=== PATIENT | female | born 1940 | race African-American/Black ===

== ENCOUNTER 2022-04-21 16:15 | Inpatient (IN) | payer MEDICARE, BC ==
[~2022-04-21] VITALS: Ht 170.2 cm; Wt 62.6 kg
[2022-04-21 19:58] LABS: BASOPHILS % 0.5 % (0.0-2.0); EOSINOPHILS % 2.2 % (0.0-5.0); HEMATOCRIT. 37.2 % (36.0-48.0); HEMOGLOBIN. 12.3 g/dL (12.0-16.0); LYMPHOCYTES % 18.1 % (20.0-50.0); MEAN CORPUSCULAR HEMOGLOBIN 26.3 pg (28.0-32.0); MEAN CORPUSCULAR VOLUME 79.9 fL (81.0-99.0); MEAN PLATELET VOLUME 7.4 fl (7.4-10.4); NEUTROPHILS % 70.2 % (40.0-76.0); PLATELET 169 x1000/uL (130-400); RED BLOOD CELL COUNT 4.66 mill/uL (4.2-5.4); RED CELL DISTRIBUTION WIDTH 17.4 % (11.6-14.6)
[2022-04-21 20:11] LABS: CHLORIDE 97 mEq/L (98-107)
[2022-04-21] MEDS ORDERED: AMLO10TA80 PO (23:02)
[2022-04-21] MEDS ORDERED: SIMV10TA97 MT (23:02)
[2022-04-21] MEDS ORDERED: METO5TAB2 MT (23:02)
[2022-04-21] MEDS ORDERED: FLUO10TA3 PO (23:02)
[2022-04-21] MEDS ORDERED: CALC0.5C10 PO (23:02)
[2022-04-21] MEDS ORDERED: TOPUD MT (23:02)
[2022-04-21] MEDS ORDERED: PANT20TA17 PO (23:02)
[2022-04-21] MEDS ORDERED: LOSA25TA26 PO (23:02)
[2022-04-21] MEDS ORDERED: MIRT-89 PO (23:02)
[2022-04-21] MEDS ORDERED: DRON400T PO (23:02)
[2022-04-21] MEDS ORDERED: APIX2.5T PO (23:02)
[2022-04-21] MEDS ORDERED: EZET-55 MT (23:02)
[2022-04-21] MEDS ORDERED: TEMA30CA PO (23:02)
[2022-04-21] MEDS ORDERED: AMYL1CAP61 MT (23:02)
[2022-04-21] MEDS ORDERED: LOPE2CAP PO (23:02)
[2022-04-21] MEDS ORDERED: BUSP5TAB3 PO (23:02)
[2022-04-21] MEDS ORDERED: TIZA-191 PO (23:02)
[2022-04-22] MEDS ORDERED: MORPHINE SULFATE 4 MG/ML CPJ (NOT FOR IM USE) IV ONE (00:45)
[2022-04-22 10:30] VITALS: BP 163/69
[2022-04-22 10:45] VITALS: BP 163/69
[2022-04-22] MEDS ORDERED: ACETAMINOPHEN 325MG TABLET PO PRN ×3 (10:45→14:57)
[2022-04-22] MEDS ORDERED: ONDANSETRON HCL 4MG/2ML INJ IV PRN (10:45)
[2022-04-22 12:00] VITALS: BP 155/79
[2022-04-22] MEDS ORDERED: NALOXONE HCL 0.4MG/ML VIAL IV PRN (12:30)
[2022-04-22] MEDS: HYDROCODONE/ACETAMINOPHEN 5/325MG TABLET PO PRN ×2 (12:55→18:02)
[2022-04-22] MEDS ORDERED: TIZANIDINE HCL 2MG TABLET PO PRN (14:15)
[2022-04-22] MEDS ORDERED: LOPERAMIDE HCL 2MG CAPSULE PO PRN (14:15)
[2022-04-22] MEDS: LOSARTAN POTASSIUM 25 MG TABLET PO SCH (15:19)
[2022-04-22] MEDS: AMLODIPINE 10MG TABLET PO SCH (15:19)
[2022-04-22] MEDS: ENOXAPARIN 60MG/0.6ML SYR SUBCUT SCH (15:52)
[2022-04-22] MEDS: BUSPIRONE HCL 5MG TABLET PO SCH (15:52)
[2022-04-22 16:00] VITALS: BP 148/70
[2022-04-22 16:23] LABS: INR 1.1; PROTHROMBIN TIME 12.1 sec (9.6-11.0)
[2022-04-22] MEDS ORDERED: METOCLOPRAMIDE HCL 5MG TABLET PO PRN (17:00)
[2022-04-22 17:04] LABS: HEPATITIS B SURFACE ANTIGEN NEGATIVE
[2022-04-22 20:00] VITALS: BP 153/75
[2022-04-22] MEDS: MIRTAZAPINE 15MG TABLET PO SCH (20:08)
[2022-04-22] MEDS: ATORVASTATIN CALCIUM 10MG TABLET PO SCH (20:27)
[2022-04-22] MEDS: HYDROCODONE/ACETAMINOPHEN 10/325MG TABLET PO PRN (22:25)
[2022-04-22] MEDS: TEMAZEPAM 15MG CAPSULE PO PRN (23:53)
[2022-04-23] VITALS (15 sets, daily range): BP systolic 132–170; BP diastolic 60–87
[2022-04-23 06:52] LABS: BASOPHILS % 0.5 % (0.0-2.0); EOSINOPHILS % 3.1 % (0.0-5.0); HEMATOCRIT. 36.2 % (36.0-48.0); HEMOGLOBIN. 11.9 g/dL (12.0-16.0); LYMPHOCYTES % 17.8 % (20.0-50.0); MEAN CORPUSCULAR HEMOGLOBIN 26.6 pg (28.0-32.0); MEAN CORPUSCULAR VOLUME 80.6 fL (81.0-99.0); MEAN PLATELET VOLUME 7.8 fl (7.4-10.4); NEUTROPHILS % 69.6 % (40.0-76.0); PLATELET 151 x1000/uL (130-400); RED BLOOD CELL COUNT 4.49 mill/uL (4.2-5.4); RED CELL DISTRIBUTION WIDTH 17.3 % (11.6-14.6)
[2022-04-23] MEDS: AMLODIPINE 10MG TABLET PO SCH (12:06)
[2022-04-23] MEDS: LOSARTAN POTASSIUM 25 MG TABLET PO SCH (12:06)
[2022-04-23] MEDS: BUSPIRONE HCL 5MG TABLET PO SCH (12:06)
[2022-04-23] MEDS: HYDROCODONE/ACETAMINOPHEN 10/325MG TABLET PO PRN ×2 (12:06→18:17)
[2022-04-23] MEDS: CALCIUM CARBONATE/VITAMIN D3 500MG TABLET PO SCH (18:14)
[2022-04-23] MEDS: CALCIUM ACETATE 667MG CAPSULE PO SCH (18:14)
[2022-04-23] MEDS: ENOXAPARIN 60MG/0.6ML SYR SUBCUT SCH (18:14)
[2022-04-23] MEDS: LIDOCAINE 5% PATCH TOP SCH (18:14)
[2022-04-23] MEDS: CALCITONIN,SALMON, 3.7 ML NASAL SPRAY ONENSTRL SCH (18:15)
[2022-04-23] MEDS: MIRTAZAPINE 15MG TABLET PO SCH (21:41)
[2022-04-23] MEDS: ATORVASTATIN CALCIUM 10MG TABLET PO SCH (21:41)
[2022-04-23] MEDS: TEMAZEPAM 15MG CAPSULE PO PRN (22:40)
[2022-04-24] VITALS: BP 151/71
[2022-04-24] MEDS: HYDROCODONE/ACETAMINOPHEN 10/325MG TABLET PO PRN ×2 (00:18→09:13)
[2022-04-24 04:00] VITALS: BP 140/67
[2022-04-24 06:16] LABS: BASOPHILS % 0.5 % (0.0-2.0); EOSINOPHILS % 3.6 % (0.0-5.0); LYMPHOCYTES % 16.7 % (20.0-50.0); MEAN CORPUSCULAR HEMOGLOBIN 26.8 pg (28.0-32.0); MEAN CORPUSCULAR VOLUME 80.5 fL (81.0-99.0); MEAN PLATELET VOLUME 7.7 fl (7.4-10.4); MONOCYTES % 10.7 % (2.0-8.0); NEUTROPHILS % 68.5 % (40.0-76.0); PLATELET 163 x1000/uL (130-400); RED BLOOD CELL COUNT 4.48 mill/uL (4.2-5.4); RED CELL DISTRIBUTION WIDTH 17.1 % (11.6-14.6)
[2022-04-24 08:00] VITALS: BP 154/73
[2022-04-24] MEDS: BUSPIRONE HCL 5MG TABLET PO SCH (09:13)
[2022-04-24] MEDS: LOSARTAN POTASSIUM 25 MG TABLET PO SCH (09:13)
[2022-04-24] MEDS: AMLODIPINE 10MG TABLET PO SCH (09:13)
[2022-04-24] MEDS: CALCIUM CARBONATE/VITAMIN D3 500MG TABLET PO SCH (09:14)
[2022-04-24] MEDS: LIDOCAINE 5% PATCH TOP SCH (09:14)
[2022-04-24] MEDS: CALCIUM ACETATE 667MG CAPSULE PO SCH ×3 (09:14→18:34)
[2022-04-24] MEDS: CALCITONIN,SALMON, 3.7 ML NASAL SPRAY ONENSTRL SCH (09:15)
[2022-04-24 12:05] VITALS: BP 151/68
[2022-04-24] MEDS: OXYCODONE HCL/ACETAMINOPHEN 5/325MG TABLET PO PRN ×2 (12:39→21:52)
[2022-04-24 16:00] VITALS: BP 133/68
[2022-04-24] MEDS: ENOXAPARIN 60MG/0.6ML SYR SUBCUT SCH (18:35)
[2022-04-24 20:01] VITALS: BP 137/65
[2022-04-24] MEDS: MIRTAZAPINE 15MG TABLET PO SCH (21:52)
[2022-04-24] MEDS: ATORVASTATIN CALCIUM 10MG TABLET PO SCH (21:53)
[2022-04-24] MEDS: TEMAZEPAM 15MG CAPSULE PO PRN (23:15)
[2022-04-25] VITALS (14 sets, daily range): BP systolic 136–157; BP diastolic 64–95
[2022-04-25] MEDS: CALCIUM ACETATE 667MG CAPSULE PO SCH ×3 (08:56→18:07)
[2022-04-25] MEDS: BUSPIRONE HCL 5MG TABLET PO SCH (08:56)
[2022-04-25] MEDS: OXYCODONE HCL/ACETAMINOPHEN 5/325MG TABLET PO PRN ×3 (08:56→22:06)
[2022-04-25] MEDS: DOCUSATE SODIUM 250MG CAPSULE PO SCH (08:56)
[2022-04-25] MEDS: LIDOCAINE 5% PATCH TOP SCH (08:57)
[2022-04-25] MEDS: AMLODIPINE 10MG TABLET PO SCH (09:00)
[2022-04-25] MEDS: LOSARTAN POTASSIUM 25 MG TABLET PO SCH (16:19)
[2022-04-25] MEDS: ENOXAPARIN 60MG/0.6ML SYR SUBCUT SCH (18:08)
[2022-04-25] MEDS ORDERED: GADOTERATE MEGLUMINE 5 MMOL/10 ML VIAL IV ONE (19:14)
[2022-04-25] MEDS: MIRTAZAPINE 15MG TABLET PO SCH (22:05)
[2022-04-25] MEDS: ATORVASTATIN CALCIUM 10MG TABLET PO SCH (22:06)
[2022-04-25] MEDS: TEMAZEPAM 15MG CAPSULE PO PRN (23:18)
[2022-04-26] VITALS (7 sets, daily range): BP systolic 131–158; BP diastolic 70–89
[2022-04-26] MEDS: OXYCODONE HCL/ACETAMINOPHEN 5/325MG TABLET PO PRN ×3 (08:24→20:45)
[2022-04-26] MEDS: DOCUSATE SODIUM 250MG CAPSULE PO SCH (09:20)
[2022-04-26] MEDS: LIDOCAINE 5% PATCH TOP SCH (09:20)
[2022-04-26] MEDS: CALCIUM ACETATE 667MG CAPSULE PO SCH ×3 (09:20→17:47)
[2022-04-26] MEDS: BUSPIRONE HCL 5MG TABLET PO SCH (09:20)
[2022-04-26] MEDS: LOSARTAN POTASSIUM 25 MG TABLET PO SCH (09:20)
[2022-04-26] MEDS: AMLODIPINE 10MG TABLET PO SCH (09:21)
[2022-04-26] MEDS: ENOXAPARIN 60MG/0.6ML SYR SUBCUT SCH (17:47)
[2022-04-26] MEDS: ATORVASTATIN CALCIUM 10MG TABLET PO SCH (20:45)
[2022-04-26] MEDS: MIRTAZAPINE 15MG TABLET PO SCH (20:45)
[2022-04-26] MEDS: TEMAZEPAM 15MG CAPSULE PO PRN (23:01)
[2022-04-26] MEDS: PANTOPRAZOLE 40MG DR TABLET PO SCH (23:01)
[2022-04-27] VITALS (18 sets, daily range): BP systolic 122–158; BP diastolic 61–86
[2022-04-27] MEDS: PANTOPRAZOLE 40MG DR TABLET PO SCH (06:35)
[2022-04-27] MEDS: OXYCODONE HCL/ACETAMINOPHEN 5/325MG TABLET PO PRN (06:51)
[2022-04-27] MEDS: LOSARTAN POTASSIUM 25 MG TABLET PO SCH (08:39)
[2022-04-27] MEDS: BUSPIRONE HCL 5MG TABLET PO SCH (08:39)
[2022-04-27] MEDS: DOCUSATE SODIUM 250MG CAPSULE PO SCH (08:39)
[2022-04-27] MEDS: CALCIUM ACETATE 667MG CAPSULE PO SCH ×3 (08:40→17:45)
[2022-04-27] MEDS: AMLODIPINE 10MG TABLET PO SCH (08:40)
[2022-04-27] MEDS: LIDOCAINE 5% PATCH TOP SCH (08:42)
[2022-04-27] MEDS: ENOXAPARIN 60MG/0.6ML SYR SUBCUT SCH (17:45)
[2022-04-27 18:41] LABS: HEPATITIS B SURFACE ANTIGEN NEGATIVE
[2022-04-28] MEDS ORDERED: FAMOTIDINE 20MG TABLET PO SCH (06:50)
== END 2022-04-27 21:48 | DRG 535 ==
LOC: ER 16:15 → MICUSO 04-22 01:28 → 3WST 04-22 10:06
PROVIDERS: ADMIT Internal Medicine; ATTEND Internal Medicine
PROC: 5A1D70Z Performance of Urinary Filtration, Intermittent, Less than 6 Hours Per Day (ICD-10-PCS; principal; 2022-04-23)
PROC: 5A1D70Z Performance of Urinary Filtration, Intermittent, Less than 6 Hours Per Day (ICD-10-PCS; 2022-04-25)
PROC: 5A1D70Z Performance of Urinary Filtration, Intermittent, Less than 6 Hours Per Day (ICD-10-PCS; 2022-04-27)
DX: S32.591A Other specified fracture of right pubis, initial encounter for closed fracture (principal); N18.6 End stage renal disease; G82.20 Paraplegia, unspecified; I13.2 Hypertensive heart and chronic kidney disease with heart failure and with stage 5 chronic kidney disease, or end stage renal disease; E11.22 Type 2 diabetes mellitus with diabetic chronic kidney disease; M81.0 Age-related osteoporosis without current pathological fracture; K21.9 Gastro-esophageal reflux disease without esophagitis; M19.90 Unspecified osteoarthritis, unspecified site; E78.5 Hyperlipidemia, unspecified; I48.0 Paroxysmal atrial fibrillation; I25.10 Atherosclerotic heart disease of native coronary artery without angina pectoris; D50.9 Iron deficiency anemia, unspecified; G89.4 Chronic pain syndrome; I50.9 Heart failure, unspecified; W18.30XA Fall on same level, unspecified, initial encounter; J43.9 Emphysema, unspecified; Z87.19 Personal history of other diseases of the digestive system; Z79.01 Long term (current) use of anticoagulants; Z99.2 Dependence on renal dialysis; Z88.2 Allergy status to sulfonamides; Z88.0 Allergy status to penicillin; Z79.899 Other long term (current) drug therapy; Z82.49 Family history of ischemic heart disease and other diseases of the circulatory system; Y93.89 Activity, other specified; Y92.89 Other specified places as the place of occurrence of the external cause; Y99.8 Other external cause status; G90.8 Other disorders of autonomic nervous system
CPT/HCPCS: 36415; 71045; 71260; 72131; 72141; 72146; 72147; 72148; 72192; 73502; 73700; 74177; 76700; 80048; 80053; 82962; 83036; 83880; 84484; 85025; 86705; 86709; 86803; 87340; 90935; 93005; 97116; 97162; 97166; 97530; 99291; A9577; J1650; J2270